=== PATIENT | female | born 1980 | race Caucasian/White ===

== ENCOUNTER 2021-07-01 08:42 | Emergency (ER) | payer BC, SELFPAY ==
[2021-07-01 08:48] VITALS: BP 130/90; PULSE 90; RESP 18; TEMP 36.3; O2SAT 99
[2021-07-01 10:00] VITALS: BP 122/91; PULSE 86; RESP 18; O2SAT 99
--- NOTE | 2021-07-01 10:06 | ED.EPISTAXIS ---
HPI - Epistaxis General Chief complaint: Epistaxis <JESENIA Young Last Filed: 07/01/21 18:41> Stated complaint: nosebleed <JESENIA Young Last Filed: 07/01/21 18:41> Time Seen by Provider: 07/01/21 08:56 <JESENIA Young Last Filed: 07/01/21 18:41> Source: patient <JESENIA Young Last Filed: 07/01/21 18:41> Mode of arrival: ambulatory <JESENIA Young Last Filed: 07/01/21 18:41> Limitations: no limitations <JESENIA Young Last Filed: 07/01/21 18:41> History of Present Illness HPI Narrative: Patient is a 41 y/o female who presents to the ED with c/o epistaxis. Patient reports she was sitting on the couch on her computer when she suddenly developed an epistaxis around 7:50 AM this morning. She is unsure which nare it was coming out of as there was so much blood. She has attempting holding pressure but had persistent bleeding since then. She states she has had blood running down the back of her throat. She denies any recent forceful blowing of her nose, but does mention she has had increased allergy symptoms lately and has been blowing her nose more frequently. She has been taking antihistamine and decongestant allergy medicine at home over the last few days. No blood thinners. No dizziness, lightheadedness. <JESENIA Young Last Filed: 07/01/21 18:41> Related Data Home medications: Home Medications Medication Instructions Recorded Confirmed sertraline mg 07/01/21 <JESENIA Young Last Filed: 07/01/21 18:41> Allergies/adverse reactions: Allergies Allergy/AdvReac Type Severity Reaction Status Date / Time No Known Allergies Allergy Unverified 07/01/21 08:53 <JESENIA Young Last Filed: 07/01/21 18:41> Review of Systems Review of Systems: CONSTITUTIONAL: Denies fever, chills. ENT: Reports epistaxis, rhinorrhea, congestion. Denies sore throat, dysphagia. CARDIOVASCULAR: Denies chest pain. RESPIRATORY: Denies dyspnea. GASTROINTESTINAL: Denies nausea, vomiting. NEUROLOGIC: Denies dizziness, lightheadedness. <Sara Bright PA-C - Last Filed: 07/01/21 18:41> All systems reviewed & are unremarkable except as noted in HPI and below <Sara Bright PA-C - Last Filed: 07/01/21 18:41> PMFSH Past Medical History Medical History: Medical History (Updated 07/01/21 @ 11:48 by Sara Bright PA-C) Depression <Sara Bright PA-C - Last Filed: 07/01/21 18:41> Surgical History Surgical History: Surgical History (Updated 07/01/21 @ 11:44 by Sara Bright PA-C) No pertinent past surgical history <Sara Bright PA-C - Last Filed: 07/01/21 18:41> Social History Social History: Social History (Updated 07/01/21 @ 11:44 by Sara Bright PA-C) Smoking status: Never smoker <Sara Bright PA-C - Last Filed: 07/01/21 18:41> Exam Narrative: GENERAL: Well appearing, well-nourished, non-toxic, in no acute distress. HEAD: Normocephalic, atraumatic. EYES: EOMI, conjunctivae clear bilaterally. NOSE: Dried blood around nares. Large blood clot seen in R nare. No obvious sources of bleeding on Kiesselbach plexus. THROAT: Minimal blood draining in posterior pharynx. No erythema. MMs moist. NECK: Supple. No adenopathy, no masses. RESPIRATORY: Airway patent, respirations nonlabored. Clear to auscultation bilaterally, no rales, rhonchi, wheezing. CARDIOVASCULAR: Regular rate and rhythm without murmurs, rubs, or gallops. Radial pulses 2+ and equal bilaterally. MUSCULOSKELETAL: Moves all extremities. Strength/ROM intact without gross deformities. SKIN: Warm, dry, normal color. No rashes. NEURO: A&O X3. Speech clear. Cranial nerves II-XII grossly intact. Steady gait. No ataxic movements. PSYCHIATRIC: Appropriate mood and affect. Normal interaction. <Sara Bright PA-C - Last Filed: 07/01/21 18:41> Course RETAIL STORE ASSISTANT/PA Physician Supervision For this patient encounter, I reviewed
[2021-07-01 11:48] VITALS: BP 123/86; PULSE 78; RESP 18; O2SAT 100
== END 2021-07-01 11:57 | disposition home or self-care (01) ==
PROVIDERS: Emergency Provider Emergency Medicine
DX: R04.0 Epistaxis (principal); F32.A Depression, unspecified
CPT/HCPCS: 99283; A9270

== ENCOUNTER 2021-10-18 08:34 | Outpatient (CLI) | payer BC, SELFPAY ==
--- NOTE | ~2021-10-18 | MM_ITS ---
EXAMINATION: MM screening annette BI w carroll HISTORY: Screening mammogram TECHNIQUE: Craniocaudal and mediolateral oblique 3-D tomosynthesis images were obtained and synthetic 2-D images were generated. CAD analysis was submitted and interpreted. COMPARISON: None, baseline BREAST PARENCHYMAL COMPOSITION: The breasts are extremely dense, which lowers the sensitivity of mamm ography. FINDINGS: RIGHT BREAST: There are calcifications in the posterior third far outer breast best appreciated 10.5 cm from the nipple on the craniocaudal view. LEFT BREAST: There is no suspicious mass, calcification, or architectural distortion to suggest malig soo. IMPRESSION: 1. Right breast calcifications. 2. Magnification views are recommended. BI-RADS Category 0: Incomplete: Needs additional imaging evaluation. Reviewed, dictated and finalized at location A.
== END 2021-10-18 08:35 | disposition home or self-care (01) ==
PROVIDERS: PCP Nurse Practitioner Family; Visit Provider Nurse Practitioner Family
DX: Z12.31 Encounter for screening mammogram for malignant neoplasm of breast (principal)
CPT/HCPCS: 77063; 77067

== ENCOUNTER 2021-11-07 14:04 | Outpatient (CLI) | payer BC, SELFPAY ==
--- NOTE | ~2021-11-07 | MM_ITS ---
EXAMINATION: MM diagnostic mammo unilat RT HISTORY: Indeterminate right breast calcifications on screening mammogram TECHNIQUE: Additional images of the right breast were performed and synthetic 2-D images were generat ed. CAD analysis was submitted and interpreted. COMPARISON: 10/18/2021 FINDINGS: Punctate, round calcifications are seen in the posterior third of the outer right breast, c onsistent with a benign finding. No suspicious mass, calcification, or architectural distortion are i dentified. IMPRESSION: 1. No mammographic evidence of malignancy. 2. Recommend routine screening mammography in one year. BI-RADS Category 2: Benign finding(s). Reviewed, dictated and finalized at location A.
== END 2021-11-07 14:05 | disposition home or self-care (01) ==
PROVIDERS: PCP Nurse Practitioner Family; Visit Provider Nurse Practitioner Family
DX: R92.8 Other abnormal and inconclusive findings on diagnostic imaging of breast (principal)
CPT/HCPCS: 77065

== ENCOUNTER 2023-06-21 08:50 | Outpatient (CLI) | payer BC, SELFPAY ==
[2023-06-21 12:38] LABS: Basophils Percent Auto 0.4 % (0.2-1.2); Eosinophils Absolute Auto 0.1 K/mm3 (0-0.3); Eosinophils Percent Auto 1.4 % (0-4.4); Hematocrit 43.3 % (37.0-47.0); Hemoglobin 13.8 g/dL (12.0-15.0); Immature Granulocyte Absolute 0.01 K/mm3 (0.00-0.031); Immature Granulocyte Percent A 0.2 % (0-0.5); Lymphocytes Absolute Auto 1.78 K/mm3 (0.9-3.2); Lymphocytes Percent Auto 31.5 % (18.3-44.2); Mean Corpuscular HGB Conc 31.9 g/dl (32-36); Mean Corpuscular Hemoglobin 30.1 pg (26-34); Mean Corpuscular Volume 94.3 fl (80-100); Mean Platelet Volume 10.7 fl (7.4-10.4); Monocytes Absolute Auto 0.4 K/mm3 (0.1-0.6); Monocytes Percent Auto 7.6 % (2.6-8.5); Neutrophils Absolute Auto 3.3 K/mm3 (1.3-6.7); Neutrophils Percent Auto 58.9 % (45.5-73.1); Platelet Count Result 250 k/mm3 (150-375); Red Blood Count 4.59 M/mm3 (4.2-5.4); Red Cell Distribution Width 12.8 % (11.5-14.5); White Blood Count 5.7 K/mm3 (4.5-10.0)
[2023-06-21 12:57] LABS: Alanine Aminotransferase 21 U/L (6-35); Albumin Level 4.2 g/dL (3.5-5.1); Alkaline Phosphatase 90 U/L (38-126); Anion Gap 3 mmol/L (4-12); Aspartate Amino Transferase 50 U/L (14-36); Bilirubin,Total 0.6 mg/dL (0.2-1.3); Blood Urea Nitrogen 14 mg/dL (7-17); Calcium 8.9 mg/dL (8.4-10.2); Carbon Dioxide 29 mmol/L (22-30); Chloride 105 mmol/L (98-107); Cholesterol 180 mg/dL (0-200); Estimated Glomerular Filt Rate > 60; Glucose 84 mg/dL (65-110); HDL Direct 59 mg/dL; Potassium 4.6 mmol/L (3.4-5.0); Sodium 137 mmol/L (137-145); Triglycerides 64 mg/dL (<150)
[2023-06-21 13:07] LABS: LDL Cholesterol Direct 107 mg/dL
== END 2023-06-21 08:51 | disposition home or self-care (01) ==
LOC: ANHGOSHLAB 08:51
PROVIDERS: PCP Internal Medicine; Visit Provider Nurse Practitioner
DX: F41.9 Anxiety disorder, unspecified (principal); Z13.29 Encounter for screening for other suspected endocrine disorder; Z13.220 Encounter for screening for lipoid disorders
CPT/HCPCS: 36415; 80053; 80061; 84443; 85025

== ENCOUNTER 2023-08-06 08:00 | Outpatient (RCR) | payer BC, SELFPAY ==
--- NOTE | 2023-06-24 14:35 | OPREHPOC ---
Outpatient Therapy Plan of Care This is a Multidisciplinary Plan of Care that may contain components documented by all disciplines (PT, OT, and ST.) PT Problem 1 PT Problem #1 Knowledge Deficit PT Goal 1 Goal Pt to be IND with issued HEP Target Visit 8 PT Problem 2 PT Problem #2 Pain PT Goal 1 Goal Pt to report no next pain in the last week. Target Visit 8 PT Problem 3 PT Problem #3 Impaired Strength PT Goal 1 Goal Pt to demonstrates serratus strength of grossly 4+ /5 Target Visit 8 PT Goal 2 Goal Pt to demonstrate functional lift and carry with 20lb from ground level Target Visit 8 PT Problem 4 PT Problem #4 Impaired Functional Mobil PT Goal 1 Goal Pt to report good posture while at work 70% of the time. Target Visit 8
--- NOTE | 2023-06-24 14:35 | PTOPEVAL1 ---
Assessment and note entered by Vandana Yun, PT, DPT Evaluation Information Assessment Status Evaluation Diagnosis cervicalgia Subjective Information Pt reports a long history of neck and upper back pain with chronic intermittent headaches and migraines. 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 Pt reports intermittent neck pain, with multiple migraines a month, lasting 2-3 days at a time. Dawson neck pain, R sided more than L. Heat helps at times. Pt has desk job, pt also enjoys reading. Reported Pain Level Pain Score 0: Self Report Assessment PT Clinical Summary Nata presents to therapy today for her initial evaluation with a diagnosis of cervicalgia with chronic migraines. Today she demonstrates cervical and shoulder ROM that is WNL and mostly pain free . She demonstrates decreased scapular strength resulting in rounded shoulders in standing, she also has a significant anterior pelvic tilt. Skilled therapy services are indicated to address the deficits noted above, to minimize migraines, and to improve body awareness. Plan of Care Interventions Electrical Stimulation,Hot Pack/Cold Pack,Manual Therapy,Mechanical Traction,Neuro Re-education, Patient/Caregiver Educati,Therapeutic Activities, Therapeutic Exercise PT Services Indicated Yes Treatment Frequency and 1x/wk for 6 visits Duration These treatments will address the objective and functional deficits as defined above. The patient will be advanced safely and appropriately in order for the patient to progress towards his/her prior level of function. Additional exercises will be introduced and as well as a comprehensive home exercise program upon discharge, if needed, ?to ensure carryover of functional gains achieved in the clinic. This treatment plan has been reviewed and agreement upon by the patient.
--- NOTE | 2023-07-22 12:30 | PCPTNOTE ---
Pt. no showed.
--- NOTE | 2023-08-06 08:53 | OPREHPOC ---
Outpatient Therapy Plan of Care This is a Multidisciplinary Plan of Care that may contain components documented by all disciplines (PT, OT, and ST.) PT Problem 1 PT Problem #1 Knowledge Deficit PT Goal 1 Goal Pt to be IND with issued HEP Target Visit 8 Progress Met PT Problem 2 PT Problem #2 Pain PT Goal 1 Goal Pt to report no next pain in the last week. Target Visit 8 Progress Met PT Problem 3 PT Problem #3 Impaired Strength PT Goal 1 Goal Pt to demonstrates serratus strength of grossly 4+ /5 Target Visit 8 Progress Met PT Goal 2 Goal Pt to demonstrate functional lift and carry with 20lb from ground level Target Visit 8 Progress Met PT Problem 4 PT Problem #4 Impaired Functional Mobil PT Goal 1 Goal Pt to report good posture while at work 70% of the time. Target Visit 8 Progress Met
--- NOTE | 2023-08-06 08:53 | PTOPDC ---
Assessment and note entered by Mekhi Lopes, PT Evaluation Information Assessment Status Discharge Diagnosis Cervicalgia Subjective Information Reports that she has had very little headache since starting therapy. Neck has felt lot better locally but still has some pain with lifting shoulder into abduction. Denies trouble sleeping from neck pain. She has been placing pillow lower down on upper back and it has helped. Reported Pain Level Pain Score 1: Self Report Assessment PT Clinical Summary Patient met all goals for therapy and is suitable for discharge to [facility] at this time. Headaches are much less frequent and she demonstrates proper independence with HEP at this time. Plan of Care PT Services Indicated D/C to HEP
== END 2023-08-06 09:47 | disposition home or self-care (01) ==
LOC: ANHGOSHPT 08:00
PROVIDERS: PCP Internal Medicine; Visit Provider Nurse Practitioner
DX: M54.2 Cervicalgia (principal)
CPT/HCPCS: 97012; 97014; 97110; 97140; 97161; 97530; 99199; G0283

== ENCOUNTER 2023-10-28 01:08 | Day surgery (SDC) | payer BC, SELFPAY ==
--- NOTE | 2023-10-21 12:22 | PC.NURSE ---
Report to the Outpatient Waiting Room, entrance under the green pavilion located off [facility], at time _0600__ on date __10/28/23_. Planned Procedure Time: _07__. Time changes happen often and if your time is changed the preop area will call you the afternoon before. - You and your visitor will be asked to self-screen and do not enter if you have any COVID symptoms. - A mask is optional within the hospital at this time. Patients may have clear liquids (water, carbonated beverages, clear teas, apple juice) until 3 hours prior to surgery with a maximum of 20 ounces. - No food from midnight until time of surgery - Infants may have breast milk until 4 hours before surgery, formula 6 hours prior to surgery. - Children will be allowed to drink immediately following surgery. If applicable, please bring a bottle or sippy cup to assist with drinking. Juice, water, soda, and popsicles are readily available. For infants on formula, please bring formula the day of surgery. Pacifiers are allowed. Take the following medications with a SIP of water the morning of surgery: __ATOMOXETINE, ADDERALL, SERTRALINE, IMITREX IF NEEDED____ DO NOT STOP ANY OF YOUR OTHER PRESCRIPTION MEDICATIONS PRIOR TO SURGERY ?EXCEPT THE FOLLOWING Medications to discontinue per physician NONE Date to take last dose Please no make-up, nail urdu, hairspray, perfume, deodorant, or body powder the day of surgery. No jewelry (including any body piercings) or valuables the day of surgery, leave them at home. Please take a shower or bath the night before, or the morning of, surgery with an antibacterial soap. Wear comfortable, loose fitting clothing. Children are encouraged to wear pajamas. - Jewelry must be removed prior to entering the operating room. Rings and piercings that are not removed may be cut off. - The hospital will not accept responsibility for valuables. - Please leave all valuables, including medications, at home the day of surgery. If you are going home after surgery, a licensed catering driver must drive you home. - NO public transportation without another adult if you receive anesthesia. - We recommend that an adult stay with you for 24 hours following discharge. - We also recommend that you do not drive, make important decision, drink alcoholic beverages, or take any drugs that were not prescribed by your health care provider for at least 24 hours after your discharge time. For Pediatric surgeries, we recommend two adults accompany the child home. Follow any additional instructions given to you from your surgeon. If you or anyone in your household have experienced Covid symptoms in the past week, please notify your surgeon or the nurse liaison at the phone number below for possible testing. Telephone instructions given to PATIENT_and asked if any additional questions and then verbalized understanding. Patient advised to call surgeon office or pre surgery nurse liaison [phone] if any additional questions.
[2023-10-21 12:36] VITALS: BMI 29.7
--- NOTE | 2023-10-27 21:02 | PM.IMHP ---
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 She reports her cycles have started to get irregular over the last 2-2.5 years. She reports sometimes they'll come about 2.5wks, but has been as delayed at 3 months. She reports sometimes light, sometimes very heavy with filling super plus tampons every few hours; no clots. She does have significant cramping; but does not think that has worsened over the years, just flow and regularity. She denies any hot flashes, night sweats, or other menopausal symptoms. She used to previously be on contraception, but is asexual and is not sexually active. She denies any pelvic pain or vaginal issues. She has a h/o migraines, random, no aura. She does have a PCP and reports that she recently had blood work, normal thyroid, blood counts. On pelvic exam, she was found to have a large cervical polyp. 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 Review of Systems Constitutional: Constitutional: Denies chills, Denies fever(s) and Reports headache(s) Eyes: Eyes: Denies change in vision ENT: Denies dizziness and Reports headache(s) Cardiovascular: Cardiovascular: Denies chest pain and Denies dyspnea Respiratory: Respiratory: Denies cough and Denies dyspnea Gastrointestinal: Gastrointestinal: Denies abdominal pain and Denies change in stool character Genitourinary: Genitourinary: Reports abnormal menses, Reports menorrhagia, Reports dysmenorrhea, Denies pelvic pain, Denies vaginal discharge, Denies vaginal odor and Denies vaginal pruritus Neurologic: Denies dizziness and Denies headache(s) Psychiatric: Psychiatric: Denies anxiety and Denies depression PMF Past Medical History Medical History (Updated 09/04/23 @ 10:16 by Nata Nicole MD) ADHD Depression Surgical History Surgical History (Updated 09/04/23 @ 09:40 by Carly Gutierrez MA) Delivery by section No pertinent past surgical history Family History Family History Grandparent Colon cancer Father Hypertension Mother Thyroid disorder Grandparent Thyroid disorder Social History Social History (Updated 09/04/23 @ 09:40 by Carly Gutierrez MA) Smoking status: Never smoker Alcohol intake: current Alcohol use details: 1 PER MONTH Substance use: never Substance use type: does not use Do You Feel Safe in your Home?: Yes Lack of Transportation: No Lack of Food: Never True Current Housing: I Have Housing Concerned About Future Housing: No Difficulty Paying Gas/Electric Bills: No Difficulty Paying for Meds: No Currently Unemployed: No Education: Bachelor's Degree Difficulty w/ Childcare or Family Care: No Living arrangements: with family Occupation/Education: occupation Gender identity (if verbalized by the patient): Female Sexual Orientation (if Verbalized by the Patient): neither Meds Home Medications and Allergies Home Medications Medication Instructions Recorded Confirmed Type atomoxetine 100 mg capsule 100 mg PO DAILY 10/05/22 10/21/23 History dextroamphetamine-amphetamine 15 15 mg PO DAILY 10/05/22 10/21/23 History mg tablet (Adderall) sertraline 50 mg tablet 50 mg PO DAILY 10/05/22 10/21/23 History sumatriptan succinate 50 mg tablet See Rx Instructions PO .COMPLEX #9 06/21/23 10/21/23 Rx (Imitrex) tabs Allergies Allergy/AdvReac Type Severity Reaction Status Date / Time No Known Allergies Allergy Verified 10/21/23 12:14 Exam Const: General: cooperative, healthy appearing, comfortable and no acute distress Orientation/consciousness: patient oriented x3 Resp: Effort & Inspection: normal respiratory effort Cardio: Rate: regular rate GI: Inspection: normal to inspection GI Palp: No abdominal tenderne
[2023-10-28 06:30] VITALS: BP 129/87; PULSE 100; RESP 14; TEMP 36.4; O2SAT 100
[2023-10-28] MEDS: ACETAMINOPHEN 500 MG TABLET 1000 MG PO (06:30)
[2023-10-28] MEDS: LACTATED RINGERS 1,000 ML 30 ML IV CONT (06:30)
--- NOTE | 2023-10-28 07:00 | WPDANESEPPF ---
Anes - Initial Pre Proc Eval Procedure: Operation Date: 10/28/23 07:30 Proposed Procedures p Hysteroscopy, Dilation and Curettage with Polypectomy - Nata Nicole MD Date/Time: 10/28/23 07:00 Surgeon: Nata Nicole MD Pre Op Diagnosis: abn uterine bleeding Patient Data Age: 43 Gender: F Height: 1.68 m Weight: 83.5 kg Allergies Allergy/AdvReac Type Severity Reaction Status Date / Time No Known Allergies Allergy Verified 10/21/23 12:14 Home Medications Medication Instructions Recorded Confirmed Type atomoxetine 100 mg capsule 100 mg PO DAILY 10/05/22 10/21/23 History dextroamphetamine-amphetamine 15 15 mg PO DAILY 10/05/22 10/21/23 History mg tablet (Adderall) sertraline 50 mg tablet 50 mg PO DAILY 10/05/22 10/21/23 History sumatriptan succinate 50 mg tablet See Rx Instructions PO .COMPLEX #9 06/21/23 10/21/23 Rx (Imitrex) tabs Patient hx anesthesia problems: none Family hx anesthesia problems: none Results Review: All pre-operative results and documents have been reviewed as part of the pre-operative evaluation. [facility] Past Medical History Medical History ADHD Depression Surgical History Surgical History Delivery by section No pertinent past surgical history Family History Family History Grandparent Colon cancer Father Hypertension Mother Thyroid disorder Grandparent Thyroid disorder Social History Social History Smoking status: Never smoker Alcohol intake: current Alcohol use details: 1 PER MONTH Substance use: never Substance use type: does not use Do You Feel Safe in your Home?: Yes Lack of Transportation: No Lack of Food: Never True Current Housing: I Have Housing Concerned About Future Housing: No Difficulty Paying Gas/Electric Bills: No Difficulty Paying for Meds: No Currently Unemployed: No Education: Bachelor's Degree Difficulty w/ Childcare or Family Care: No Living arrangements: with family Occupation/Education: occupation Gender identity (if verbalized by the patient): Female Sexual Orientation (if Verbalized by the Patient): neither Anes - Eval Final PreProcedure Day of Procedure 10/28/23 07:00 Patient weight: normal Heart: regular rate and rhythm Lungs: clear to auscultation Airway: Mallampati scale Neurological: alert and oriented Last oral intake: >/= 8 hours ASA classification: II Emergent: no Anesthetic plan: proceed Anesthesia type and monitoring: general GIVS and standard monitoring Results Review: All pre-operative results and documents have been reviewed as part of the pre-operative evaluation. Anxiety/depression meds. Informed Consent: The patient's anesthetic plan and its attendant risks and benefits were discussed with the patient/family/POA. Questions were solicited and answers provided to the satisfaction of the patient/family/POA.
--- NOTE | 2023-10-28 07:14 | WPDHPUPDATE1 ---
History and Physical Update Update Date/Time: 10/28/23 07:14 History and Physical has been reviewed, including an updated exam of the patient. There are NO changes in the patient's condition. Risks, benefits, and alternatives have been discussed and questions answered. Patient agrees to proceed with hysteroscopy, D&C with polypectomy. .
[2023-10-28 07:42] LABS: BEDSIDEPREGUCG Negative
[2023-10-28 08:05] VITALS: BP 115/78; PULSE 72; RESP 16; O2SAT 99
--- NOTE | 2023-10-28 08:05 | W.PM.PROC2 ---
Procedure Note - Detailed Date of Procedure 10/28/23 Pre-op Diagnosis abn uterine bleeding Post-op Diagnosis Same Procedure Performed Hysteroscopy, D&C with polypectomy Surgeon Nata Nicole MD Anesthesia MAC Findings 2x2cm Endocervical polyp arising from 9-12o'clock of cervix; removed in whole. Uterus sounded to 7cm, bilateral tubal ostia visualized; normal cavity with normal appearing lining. Good hemostasis at end of case. Description of Procedure Nata was taken to the operating room where she was placed under sedation without complications. She was then prepped and draped in the usual sterile fashion in the dorsal lithotomy position with her legs in low Philip stirrups. A time-out was performed and no perioperative antibiotics were indicated. A bivalve speculum was placed within the vagina where the cervix was easily identified. The anterior lip of the cervix was grasped with a single-tooth tenaculum. The cervix was then serially dilated to allow for the hysteroscope. The hysteroscope was advanced into the uterine cavity with the above findings noted. The endocervical polyp was then grasped with a polyp forceps and turned clockwise around on it's stalk until it was removed. A curettage was then performed until a good uterine cry was felt throughout the uterus. Pressure using a sponge on a stick was applied to the cervix and good hemostasis was then noted. All instruments were removed from the vagina. Sponge, lap, instrument, and needle counts were correct at the end of the procedure. Patient was awoken from anesthesia and taken to recovery with plans of same-day discharge home. Estimated Blood Loss 10 IV Fluids 600 Pathology Yes (endometrial curetting's and endocervical polyp) Complications No immediate complications Condition Stable Disposition Same day [facility] Billing Surgery - Charge Forward: Surgery Billing
[2023-10-28 08:30] VITALS: BP 115/78; PULSE 71; RESP 16; O2SAT 100
[2023-10-28 08:55] VITALS: BP 108/74; PULSE 69; RESP 14
== END 2023-10-28 09:04 | disposition home or self-care (01) ==
PROVIDERS: PCP Internal Medicine; Visit Provider Obstetrics & Gynecology
PROC: 0U5B8ZZ Destruction of Endometrium, Via Natural or Artificial Opening Endoscopic (ICD-10-PCS; CPT 58563; principal; 2023-10-28 07:30)
DX: N84.1 Polyp of cervix uteri (principal); F90.9 Attention-deficit hyperactivity disorder, unspecified type; F32.A Depression, unspecified; Z98.890 Other specified postprocedural states; Z80.0 Family history of malignant neoplasm of digestive organs
CPT/HCPCS: 58558; 88305; A9270; J2250; J2704; J3010; J7120

== ENCOUNTER 2023-11-26 09:48 | Outpatient (CLI) | payer BC, SELFPAY ==
--- NOTE | ~2023-11-26 | MM_ITS ---
EXAMINATION: MM screening annette BI w carroll HISTORY: Screening mammogram TECHNIQUE: Craniocaudal and mediolateral oblique 3-D tomosynthesis images were obtained and synthetic 2-D images were generated. CAD analysis was submitted and interpreted. COMPARISON: 11/07/2021, 10/18/2021 BREAST PARENCHYMAL COMPOSITION:Dense: The breasts are extremely dense, which lowers the sensitivity o f mammography. FINDINGS: No suspicious mass, calcification, or architectural distortion are identified in either jose maria ast to suggest malignancy. There has been no suspicious interval change. IMPRESSION: No mammographic evidence of malignancy. Recommend routine screening mammography in one year. BI-RADS Category 1: Negative Reviewed, dictated and finalized at location M.
== END 2023-11-26 09:49 | disposition home or self-care (01) ==
LOC: ANHIMG 09:49
PROVIDERS: PCP Internal Medicine; Visit Provider Nurse Practitioner
DX: Z12.31 Encounter for screening mammogram for malignant neoplasm of breast (principal)
CPT/HCPCS: 77063; 77067

== ENCOUNTER 2025-01-05 09:30 | Outpatient (CLI) | payer BC, SELFPAY ==
--- NOTE | ~2025-01-05 | XR_ITS ---
EXAMINATION: XR hand BI arthritis min 3V, 01/05/2025 9:51 CDT HISTORY: Pain in right finger(s), pain x 6 months, no inj, no surg COMPARISON: No comparisons available. Findings: No acute fracture or malalignment. No significant degenerative changes. Soft tissues unremarkable. Impression: No acute fracture or malalignment. Reviewed, dictated and finalized at location P. Impression: No acute fracture or malalignment.
== END 2025-01-05 09:31 | disposition home or self-care (01) ==
PROVIDERS: PCP Plastic Surgery; Visit Provider Nurse Practitioner
DX: M79.644 Pain in right finger(s) (principal); M79.645 Pain in left finger(s)
CPT/HCPCS: 73130

== ENCOUNTER 2025-01-15 08:16 | Outpatient (CLI) | payer BC, SELFPAY ==
[2025-01-15 12:54] LABS: Hematocrit 39.8 % (37.0-47.0); Hemoglobin 12.8 g/dL (12.0-15.0); Immature Granulocyte Percent A 0.4 % (0-0.5); Lymphocytes Absolute Auto 1.68 K/mm3 (0.9-3.2); Mean Corpuscular HGB Conc 32.2 g/dl (32-36); Mean Corpuscular Hemoglobin 30.1 pg (26-34); Mean Corpuscular Volume 93.6 fl (80-100); Nucleated Red Blood Cells Absolute Auto 0.000 K/mm3 (0.0-0.012); Nucleated Red Blood Cells Perc 0.0 % (0.0-0.2); Platelet Count Result 221 k/mm3 (150-375); Red Blood Count 4.25 M/mm3 (4.2-5.4); White Blood Count 5.1 K/mm3 (4.5-10.0)
[2025-01-15 13:03] LABS: Alanine Aminotransferase 20 U/L (6-35); Albumin Level 3.9 g/dL (3.5-5.1); Alkaline Phosphatase 76 U/L (38-126); Anion Gap 4 mmol/L (4-12); Aspartate Amino Transferase 65 U/L (14-36); Bilirubin,Total 0.6 mg/dL (0.2-1.3); Blood Urea Nitrogen 14 mg/dL (7-17); Calcium 8.2 mg/dL (8.4-10.2); Carbon Dioxide 27 mmol/L (22-30); Chloride 104 mmol/L (98-107); Cholesterol 180 mg/dL (0-200); Estimated Glomerular Filt Rate > 60; Glucose 81 mg/dL (65-110); HDL Direct 62 mg/dL; Potassium 4.2 mmol/L (3.4-5.0); Sodium 135 mmol/L (137-145); Total Protein 6.9 g/dL (6.3-8.2); Triglycerides 63 mg/dL (<150)
[2025-01-15 13:38] LABS: Thyroid Stimulating Hormone 2.500 uIU/mL (0.465-4.680)
== END 2025-01-15 08:17 | disposition home or self-care (01) ==
LOC: ANHGOSHLAB 08:17
PROVIDERS: PCP Plastic Surgery; Visit Provider Nurse Practitioner
DX: Z13.220 Encounter for screening for lipoid disorders (principal); M25.50 Pain in unspecified joint; Z13.29 Encounter for screening for other suspected endocrine disorder
CPT/HCPCS: 36415; 80053; 80061; 82306; 84443; 85025